=== PATIENT | female | born 1975 | race American Indian/Alaskan Native ===

== ENCOUNTER 2017-06-25 23:49 | Emergency (ER) | payer OTHER ==
[2017-06-26 01:17] VITALS: BP 141/81
[2017-06-26] MEDS ORDERED: CLEOCIN PO ONE (05:04)
--- NOTE | 2017-06-26 05:07 | Emergency Department Report ---
ED ENT HPI - General Chief complaint: Dental/Oral Stated complaint: TOOTH PAIN Time Seen by Provider: 06/26/17 04:46 Source: patient Mode of arrival: Ambulatory Limitations: No Limitations - History of Present Illness Initial comments: 41-year-old female past medical history none presents with complaint of left- sided toothache 1 week. Patient states she has had some pus coming out of the side of her mouth. Has been eating and drinking normally states that her tooth is actually sensitive to hot and cold foods no trismus and no drooling noticed on exam. Patient is awake alert and oriented 3 nontoxic-appearing speaking in full sentences. States that she has noticed slight swelling adjacent to her left side lower molar over the last 3-4 days. Patient states she she has not yet made an appointment with a dentist and has long-standing cavities in her rear molars. Denies any bleeding from mouth cavity MD complaint: tooth pain Onset/Timin -: week(s) Location: tooth # (17) 1 - swelling and tenderess here Severity: moderate Quality: aching Consistency: constant Worsens with: eating Context- Dental: history of dental caries Associated Symptoms: gum swelling, toothache - Related Data Previous Rx's Medication Instructions Recorded Last Taken Type Amoxicillin [Amoxicillin TAB] 875 mg PO BID #20 tablet 11/25/15 Unknown Rx Fluticasone [Flonase] 1 spray NS QDAY #1 bottle 11/25/15 Unknown Rx predniSONE [Deltasone] 50 mg PO QDAY #5 tab 11/25/15 Unknown Rx Acetaminophen/Codeine [Tylenol 1 tab PO Q6H PRN #10 tab 06/26/17 Unknown Rx /Codeine # 3 tab] Benzocaine [Orajel Liquid 20%] 1 ml MM Q6HR PRN #1 bottle 06/26/17 Unknown Rx Chlorhexidine Mouthwash [Peridex] 15 ml MM BID #1 bottle 06/26/17 Unknown Rx Clindamycin [Clindamycin CAP] 300 mg PO Q6H #28 capsule 06/26/17 Unknown Rx Allergies Allergy/AdvReac Type Severity Reaction Status Date / Time No Known Allergies Allergy Unverified 11/25/15 12:16 ED Dental HPI - General Chief complaint: Dental/Oral Stated complaint: TOOTH PAIN Time Seen by Provider: 06/26/17 04:46 Source: patient Mode of arrival: Ambulatory Limitations: No Limitations - Related Data Previous Rx's Medication Instructions Recorded Last Taken Type Amoxicillin [Amoxicillin TAB] 875 mg PO BID #20 tablet 11/25/15 Unknown Rx Fluticasone [Flonase] 1 spray NS QDAY #1 bottle 11/25/15 Unknown Rx predniSONE [Deltasone] 50 mg PO QDAY #5 tab 11/25/15 Unknown Rx Acetaminophen/Codeine [Tylenol 1 tab PO Q6H PRN #10 tab 06/26/17 Unknown Rx /Codeine # 3 tab] Benzocaine [Orajel Liquid 20%] 1 ml MM Q6HR PRN #1 bottle 06/26/17 Unknown Rx Chlorhexidine Mouthwash [Peridex] 15 ml MM BID #1 bottle 06/26/17 Unknown Rx Clindamycin [Clindamycin CAP] 300 mg PO Q6H #28 capsule 06/26/17 Unknown Rx Allergies Allergy/AdvReac Type Severity Reaction Status Date / Time No Known Allergies Allergy Unverified 11/25/15 12:16 ED Review of Systems ROS: Stated complaint: TOOTH PAIN Other details as noted in HPI Constitutional: denies: chills, fever Eyes: denies: eye pain, eye discharge, vision change ENT: dental pain. denies: ear pain, throat pain Respiratory: denies: cough, shortness of breath, wheezing Cardiovascular: denies: chest pain, palpitations Endocrine: no symptoms reported Gastrointestinal: denies: abdominal pain, nausea, diarrhea Genitourinary: denies: urgency, dysuria, discharge Musculoskeletal: denies: back pain, joint swelling, arthralgia Skin: denies: rash, lesions Neurological: denies: headache, weakness, paresthesias Psychiatric: denies: anxiety, depression Hematological/Lymphatic: denies: easy bleeding, easy bruising ED Past Medical Hx - Past Medical History Previous Medical History?: No - Surgical History Past Surgical History?: Yes Additional Surgical History: c/s x 2 - Social History Smoking Status: Former Smoker Substance Use Type: Prescribed - Medications Home Medications: Home Medications Medication Instructions Recorded Confirmed Last Taken Type Amoxicillin [Amoxicillin TAB] 875 mg PO BID #20 tablet 11/25/15 Unknown Rx Fluticasone [Flonase] 1 spray NS QDAY #1 bottle 11/25/15 Unknown Rx predniSONE [Deltasone] 50 mg PO QDAY #5 tab 11/25/15 Unknown Rx Acetaminophen/Codeine [Tylenol 1 tab PO Q6H PRN #10 tab 06/26/17 Unknown Rx /Codeine # 3 tab] Benzocaine [Orajel Liquid 20%] 1 ml MM Q6HR PRN #1 bottle 06/26/17 Unknown Rx Chlorhexidine Mouthwash [Peridex] 15 ml MM BID #1 bottle 06/26/17 Unknown Rx Clindamycin [Clindamycin CAP] 300 mg PO Q6H #28 capsule 06/26/17 Unknown Rx ED Physical Exam - General Limitations: No Limitations General appearance: alert, in no apparent distress - Head Head exam: Present: atraumatic, normocephalic - Eye Eye exam: Present: normal appearance, PERRL, EOMI - ENT ENT exam: Present: mucous membranes moist - Expanded ENT Exam Expanded Teeth exam: Present: dental caries, dental tenderness # (17,18) 1 - Dental Tenderness (small palpable dental abscess, already draining pus) Throat exam: Positive: normal inspection (oropharyn patent, no cellulitis in floor of mouth, no induration) - Neck Neck exam: Present: normal inspection - Respiratory Respiratory exam: Present: normal lung sounds bilaterally. Absent: respiratory distress - Cardiovascular Cardiovascular Exam: Present: regular rate, normal rhythm. Absent: systolic murmur, diastolic murmur, rubs, gallop - GI/Abdominal GI/Abdominal exam: Present: soft, normal bowel sounds - Extremities Exam Extremities exam: Present: normal inspection - Back Exam Back exam: Present: normal inspection - Neurological Exam Neurological exam: Present: alert, oriented X3 - Psychiatric Psychiatric exam: Present: normal affect, normal mood - Skin Skin exam: Present: warm, dry, intact, normal color. Absent: rash ED Course Vital Signs 06/26/17 01:11 Temperature 99.1 F Pulse Rate 82 Respiratory 18 Rate Blood Pressure 141/81 O2 Sat by Pulse 100 Oximetry ED Medical Decision Making - Medical Decision Making A/P: dental cavities, toothache, dental abscess 1- Motrin when necessary, clindamycin qid 300mg 7 day course, Orajel when necessary, Peridex mouthwash daily basis, short course codeine when necessary 2- I provided patient with information for multiple dental clinics to follow up and stressed the importance of dental follow-up as he has multiple cavities that require dental fixation or instrumentation. [email or web address] 3- no clinical signs of facial abscess, no Ramon's angina, no induration or cellulitis of floor of mouth or tongue 4- patient able to tolerate by mouth before discharge 5- no signs of facial infection. Advised patient that if she does not take antibiotics with follow-up with a dentist as soon as possible that a can result in potentially serious or dangerous infection to develop in jaw or face. Patient states that he understood these instructions. I advised patient to return to the ED for any persistent unrelenting nausea or vomiting fever or chills or headaches. Critical care attestation.: If time is entered above; I have spent that time in minutes in the direct care of this critically ill patient, excluding procedure time. ED Disposition Clinical Impression: Toothache Disposition: TO HOME OR SELFCARE Is pt being admited?: No Does the pt Need Aspirin: No Condition: Stable Instructions: Dental Abscess (ED), Dental Caries (ED), Toothache (ED) Prescriptions: Acetaminophen/Codeine [Tylenol /Codeine # 3 tab] 1 tab PO Q6H PRN #10 tab PRN Reason: Toothache Benzocaine [Orajel Liquid 20%] 1 ml MM Q6HR PRN #1 bottle PRN Reason: Toothache Chlorhexidine Mouthwash [Peridex] 15 ml MM BID #1 bottle Clindamycin [Clindamycin CAP] 300 mg PO Q6H #28 capsule Referrals: [facility] [Outside] - 3-5 Days Forms: Work/School Release Form(ED) Time of Disposition: 05:06
== END 2017-06-26 05:15 | disposition home or self-care (01) ==
LOC: ED 23:49
DX: K08.89 Other specified disorders of teeth and supporting structures (principal); Z87.891 Personal history of nicotine dependence
CPT/HCPCS: 99282

== ENCOUNTER 2020-12-12 14:10 | Emergency (ER) | payer OTHER ==
--- NOTE | 2020-12-12 15:16 | Event Note ---
ED Screening Note ED Screening Note: generalized weakness states she has a hx of anemia and had a blood transfusion two years ago +fatigue no n/v/d no SOB no CP no abd pain no urinary symptoms no allergies to meds states she takes an iron supplement every 3-4 days hx of uterine fibroids LNMP: 11/30/2020-12/06/2020 This initial assessment/diagnostic orders/clinical plan/treatment(s) is/are subject to change based on patients health status, clinical progression and re- assessment by fellow clinical providers in the ED. Further treatment and workup at subsequent clinical providers discretion. Patient/guardian urged not to elope from the ED as their condition may be serious if not clinically assessed and managed. Initial orders include: labs
[2020-12-12 16:28] LABS: Basophils # (Auto) 0.2 K/mm3 (0.0-0.1); Basophils % (Auto) 2.7 % (0.0-1.8); Eosinophils # (Auto) 0.5 K/mm3 (0.0-0.4); Eosinophils % (Auto) 9.2 % (0.0-4.3); Hematocrit 22.9 % (30.3-42.9); Hemoglobin 6.6 gm/dl (10.1-14.3); Lymphocytes # (Auto) 1.2 K/mm3 (1.2-5.4); Lymphocytes % (Auto) 22.1 % (13.4-35.0); Mean Corpuscular HGB Conc 29 % (30-34); Monocytes # (Auto) 0.4 K/mm3 (0.0-0.8); Monocytes % (Auto) 7.8 % (0.0-7.3); Platelet Count 545 K/mm3 (140-440); Red Blood Count 4.08 M/mm3 (3.65-5.03)
[2020-12-12 16:32] LABS: Mean Corpuscular Volume 56 fl (79-97); Red Cell Distribution Width 24.6 % (13.2-15.2)
[2020-12-12 16:41] LABS: Alanine Aminotransferase 6 units/L (7-56); Albumin 4.1 g/dL (3.9-5); Blood Urea Nitrogen 9 mg/dL (7-17); Calcium 9.3 mg/dL (8.4-10.2); Hemolysis Index 0
[2020-12-12 16:43] LABS: BUN/Creatinine Ratio 13
[2020-12-12] MEDS ORDERED: SODIUM CHLORIDE 0.9% 500 ML 500 ML IV ONE (17:01)
--- NOTE | 2020-12-12 17:14 | Emergency Department Report ---
HPI - General Chief Complaint: Weakness Time Seen by Provider: 12/12/20 15:14 - HPI HPI: This is a 45-year-old female who presents to the emergency department with complaint of "I think my iron is low." The patient says that she has been feeling some generalized weakness and lightheadedness, especially when she gets up or is trying to do things around the house. The patient has a history of iron deficiency anemia and has required a transfusion in the past, about 2 years ago. The patient also admits to noncompliance with the iron supplementation as it causes constipation. She denies any fever, shortness of breath, chest pain, headache, syncope. She denies any other past medical history. Patient does say that she has very heavy menstrual cycles and has fibroids, but she is not currently in the midst of a menstrual cycle. ED Past Medical Hx - Surgical History Additional Surgical History: c/s x 2 - Social History Smoking Status: Former Smoker Substance Use Type: Prescribed - Medications Home Medications: Home Medications Medication Instructions Recorded Confirmed Last Taken Type Amoxicillin [Amoxicillin TAB] 875 mg PO BID #20 tablet 11/25/15 Unknown Rx Fluticasone [Flonase] 1 spray NS QDAY #1 bottle 11/25/15 Unknown Rx predniSONE [Deltasone] 50 mg PO QDAY #5 tab 11/25/15 Unknown Rx Acetaminophen/Codeine [Tylenol 1 tab PO Q6H PRN #10 tab 06/26/17 Unknown Rx /Codeine # 3 tab] Benzocaine [Orajel Liquid 20%] 1 ml MM Q6HR PRN #1 bottle 06/26/17 Unknown Rx Chlorhexidine Mouthwash [Peridex] 15 ml MM BID #1 bottle 06/26/17 Unknown Rx Clindamycin [Clindamycin CAP] 300 mg PO Q6H #28 capsule 06/26/17 Unknown Rx Docusate Sodium [Colace] 100 mg PO BID PRN #30 capsule 12/12/20 Unknown Rx Ferrous Sulfate [Feosol] 325 mg PO BID #60 tablet 12/12/20 Unknown Rx ED Review of Systems ROS: Stated complaint: LOW IRON Other details as noted in HPI Comment: All other systems reviewed and negative Constitutional: weakness. denies: fever Eyes: denies: eye pain, vision change ENT: denies: ear pain, throat pain Respiratory: denies: cough, shortness of breath Cardiovascular: denies: chest pain, palpitations Gastrointestinal: denies: abdominal pain, vomiting Genitourinary: denies: dysuria, discharge Musculoskeletal: denies: back pain, arthralgia Skin: denies: rash, lesions Neurological: denies: headache, numbness Physical Exam - Physical Exam Physical Exam: GENERAL: The patient is well-developed well-nourished. HENT: Normocephalic. Atraumatic. Patient has moist mucous membranes. EYES: Extraocular motions are intact. Pupils equal reactive to light bilaterally. Pale conjunctiva. NECK: Supple. Trachea is midline. CHEST/LUNGS: Clear to auscultation. There is no respiratory distress noted. HEART/CARDIOVASCULAR: Regular. There is no tachycardia. There is no murmur. ABDOMEN: Abdomen is soft, nontender. Patient has normal bowel sounds. SKIN: Skin is warm and dry. NEURO: The patient is awake, alert, and oriented. The patient is cooperative. The patient has no focal neurologic deficits. Normal speech. Cranial nerves II through XII grossly intact. MUSCULOSKELETAL: There is no tenderness or deformity. There is no limitation range of motion. ED Medical Decision Making - Lab Data Result diagrams: 12/12/20 22:00 12/12/20 15:42 Lab Results 12/12/20 12/12/20 12/12/20 Range/Units 15:42 15:42 15:42 WBC 5.6 (4.5-11.0) K/mm3 RBC 4.08 (3.65-5.03) M/mm3 Hgb 6.6 L (10.1-14.3) gm/dl Hct 22.9 L (30.3-42.9) % MCV 56 L (79-97) fl MCH 16 L (28-32) pg MCHC 29 L (30-34) % RDW 24.6 H (13.2-15.2) % Plt Count 545 H (140-440) K/mm3 Lymph % (Auto) 22.1 (13.4-35.0) % [place] % (Auto) 7.8 H (0.0-7.3) % Eos % (Auto) 9.2 H (0.0-4.3) % Baso % (Auto) 2.7 H (0.0-1.8) % Lymph # (Auto) 1.2 (1.2-5.4) K/mm3 [place] # (Auto) 0.4 (0.0-0.8) K/mm3 Eos # (Auto) 0.5 H (0.0-0.4) K/mm3 Baso # (Auto) 0.2 H (0.0-0.1) K/mm3 Seg Neutrophils % 58.2 (40.0-70.0) % Seg Neutrophils # 3.2 (1.8-7.7) K/mm3 Sodium 139 (137-145) mmol/L Potassium 4.5 (3.6-5.0) mmol/L Chloride 103.8 (98-107) mmol/L Carbon Dioxide 24 (22-30) mmol/L Anion Gap 16 mmol/L BUN 9 (7-17) mg/dL Creatinine 0.7 (0.6-1.2) mg/dL Estimated GFR > 60 ml/min BUN/Creatinine Ratio 13 % Glucose 84 (65-100) mg/dL Calcium 9.3 (8.4-10.2) mg/dL Total Bilirubin 0.40 (0.1-1.2) mg/dL AST 14 (5-40) units/L ALT 6 L (7-56) units/L Alkaline Phosphatase 73 (35-129) units/L Total Protein 7.1 (6.3-8.2) g/dL Albumin 4.1 (3.9-5) g/dL Albumin/Globulin Ratio 1.4 % HCG, Qual Negative (Negative) Blood Type Antibody Screen Crossmatch 12/12/20 Range/Units 15:42 WBC (4.5-11.0) K/mm3 RBC (3.65-5.03) M/mm3 Hgb (10.1-14.3) gm/dl Hct (30.3-42.9) % MCV (79-97) fl MCH (28-32) pg MCHC (30-34) % RDW (13.2-15.2) % Plt Count (140-440) K/mm3 Lymph % (Auto) (13.4-35.0) % [place] % (Auto) (0.0-7.3) % Eos % (Auto) (0.0-4.3) % Baso % (Auto) (0.0-1.8) % Lymph # (Auto) (1.2-5.4) K/mm3 [place] # (Auto) (0.0-0.8) K/mm3 Eos # (Auto) (0.0-0.4) K/mm3 Baso # (Auto) (0.0-0.1) K/mm3 Seg Neutrophils % (40.0-70.0) % Seg Neutrophils # (1.8-7.7) K/mm3 Sodium (137-145) mmol/L Potassium (3.6-5.0) mmol/L Chloride (98-107) mmol/L Carbon Dioxide (22-30) mmol/L Anion Gap mmol/L BUN (7-17) mg/dL Creatinine (0.6-1.2) mg/dL Estimated GFR ml/min BUN/Creatinine Ratio % Glucose (65-100) mg/dL Calcium (8.4-10.2) mg/dL Total Bilirubin (0.1-1.2) mg/dL AST (5-40) units/L ALT (7-56) units/L Alkaline Phosphatase (35-129) units/L Total Protein (6.3-8.2) g/dL Albumin (3.9-5) g/dL Albumin/Globulin Ratio % HCG, Qual (Negative) Blood Type O POSITIVE Antibody Screen Negative Crossmatch See Detail - Medical Decision Making This patient presented to the emergency department with complaint of some generalized weakness and fatigue. In the past this has represented some symptomatic anemia. She has required transfusion 1 time in the past. Patient's hemoglobin is at 6.6. Patient does admit to heavy menstrual cycles and fibroids, although she is not having any current vaginal bleeding and no complaints of any rectal bleeding. On examination the patient has some pale conjunctiva. Heart and lung sounds are normal to auscultation. No signs of any respiratory or acute distress. No focal, motor or sensory deficits and her cranial nerves are intact. The rest the patient's labs are mostly unremarkable. Her vital signs have been reassuring throughout her ED course. The patient was transfused 1 unit packed red blood cells. This was signed out to my colleague who will recheck the patient's hemoglobin after transfusion and it went up to 7.5. The patient will be started on iron pills and has been given discharge information about an iron rich diet. The patient's main complaint about iron pills was previously that it was constipating, and therefore patient will be given Colace/stool softeners. 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 She will return to the emergency department with any worsening of her symptoms or with any acute distress. Critical Care Time: No Critical care attestation.: If time is entered above; I have spent that time in minutes in the direct care of this critically ill patient, excluding procedure time. ED Disposition Clinical Impression: Microcytic anemia, Encounter for blood transfusion Disposition: TO HOME OR SELFCARE Is pt being admited?: No Condition: Stable Instructions: Blood Transfusion, Adult , Iron-Rich Diet, Blood Transfusion, Adult, Care After Additional Instructions: Please follow-up with a primary care physician in the next few days. Please follow-up with your DI[employer] SUPER[employer]OR regarding your history of fibroids and heavy periods that may be contributing to your anemia. I have prescribed you iron pills. These can sometimes be constipating. Therefore, I have also prescribed you a stool softener, Colace. Return to the emergency department with any worsening of your symptoms, new or concerning symptoms not addressed during this current emergency department visit, or with any acute distress. Prescriptions: Docusate Sodium [Colace] 100 mg PO BID PRN #30 capsule PRN Reason: Constipation Ferrous Sulfate [Feosol] 325 mg PO BID #60 tablet Referrals: PRIMARY CAREMD [Primary Care Provider] - 2-3 Days GARRY RAMIREZ MD [Staff Physician] - 3-5 Days Time of Disposition: 19:09
[2020-12-12 22:06] LABS: Hematocrit 24.9 % (30.3-42.9); Hemoglobin 7.5 gm/dl (10.1-14.3)
[2020-12-12 22:24] VITALS: BP 135/80
--- NOTE | 2020-12-16 10:16 | Electrocardiograph Report ---
[facility] Test Date: 2020-12-12 Test Time: 17:25:56 Pat Name: NICO FINN Department: Room: Gender: F Environmental Health Inspector: ANTONY WISDOM : 1975 Requested By: JAQUELIN BENNETT Order Number: [id number] Reading MD: Lg Jackson Measurements Intervals [place] Rate: 68 P: 31 WV: 163 QRS: 44 QRSD: 80 T: -2 QT: 394 QTc: 419 Interpretive Statements Sinus rhythm Probable left atrial enlargement Low voltage, precordial leads No previous ECG available for comparison Electronically Signed On 12-16-2020 10:16:42 EDT by Lg Jackson
== END 2020-12-12 22:24 | disposition home or self-care (01) ==
LOC: ED 14:10
DX: D53.9 Nutritional anemia, unspecified (principal); T80.92XA Unspecified transfusion reaction, initial encounter; Z87.891 Personal history of nicotine dependence; Z79.82 Long term (current) use of aspirin; Z79.899 Other long term (current) drug therapy
CPT/HCPCS: 36415; 36430; 80053; 84703; 85014; 85018; 85025; 86850; 86900; 86901; 86920; 93005; 96360; 99283; J7040; P9016